=== PATIENT | male | born 1985 | race African-American/Black ===

== ENCOUNTER 2018-01-11 00:28 | Emergency (ER) | payer BC, OTHER ==
[2018-01-11] MEDS ORDERED: IPRATROPIUM-ALBUTEROL 3 ML NEB INHALATION STA ×2 (01:25→02:58)
--- NOTE | 2018-01-11 01:46 | ED ---
General Adult HPI - General Chief complaint: Upper Respiratory Infection Stated complaint: LOVE, Chest Congestion Time Seen by Provider: 01/11/18 00:55 Source: patient Mode of arrival: ambulatory - History of Present Illness Initial comments: Larry is a 32-year-old male with a past medical history of asthma for which she doesn't currently have an inhaler. He presents the emergency department today for evaluation of wheezing. He reports that on Tuesday he began having some nasal congestion and URI-like symptoms. He reports that throughout the week they've progressively worsened. He reports that today he had a low-grade fever , he took some Motrin. He states that he was in orientation for a new job today so he didn't have opportunity to rest. He reports that throughout the evening it progressively worsening wheezing which kept him from sleeping and prompted him to come to the ER for evaluation. He denies any chest pain or palpitations. He denies any cardiac history. - Related Data Home Medications Medication Instructions Recorded Confirmed Ibuprofen [Motrin] 4 tab PO DIRECTED PRN 10/15/13 01/11/18 Sertraline [Zoloft] 100 mg PO DAILY 01/11/18 01/11/18 Topiramate [Topamax] 200 mg PO BID 01/11/18 01/11/18 Previous Rx's Medication Instructions Recorded Albuterol Inhaler [Ventolin Hfa 1 - 2 puff INHALATION RT-Q6H PRN 01/11/18 Inhaler] #1 inhaler predniSONE [Deltasone] 40 mg PO DAILY 5 Days #10 tablet 01/11/18 Allergies Allergy/AdvReac Type Severity Reaction Status Date / Time No Known Allergies Allergy Verified 01/11/18 02:57 Review of Systems ROS Statement: Those systems with pertinent positive or pertinent negative responses have been documented in the HPI. ROS Other: All systems not noted in ROS Statement are negative. Past Medical History Past Medical History: Asthma Additional Past Medical History / Comment(s): knee problems History of Any Multi-Drug Resistant Organisms: None Reported Past Surgical History: No Surgical Hx Reported Past Psychological History: Anxiety Smoking Status: Current every day smoker Past Alcohol Use History: Rare Past Drug Use History: None Reported General Exam - General Exam Comments Initial Comments: GENERAL: Patient is well-developed and well-nourished. Patient is nontoxic and well- hydrated and is in no distress. HENT: Normocephalic, Atraumatic. Neck is soft and supple. No significant lymphadenopathy is noted. Oropharynx is clear. Moist mucous membranes. Neck has full range of motion without eliciting any pain. EYES: The sclera were anicteric and conjunctiva were pink and moist. Extraocular movements were intact and pupils were equal round and reactive to light. Eyelids were unremarkable. PULMONARY: Mild expiratory wheeze CARDIOVASCULAR: There is a regular rate and rhythm without any murmurs gallops or rubs. ABDOMEN: Soft and nontender with normal bowel sounds. SKIN: Skin is clear with no lesions or rashes and otherwise unremarkable. NEUROLOGIC: Patient is alert and oriented x3. Cranial nerves II through XII are grossly intact. Motor and sensory are also intact. Normal speech, volume and content. Symmetrical smile. MUSCULOSKELETAL: Normal extremities with adequate strength and full range of motion. No lower extremity swelling or edema. No calf tenderness. LYMPHATICS: No significant lymphadenopathy is noted PSYCHIATRIC: Normal psychiatric evaluation. Limitations: no limitations Course Vital Signs 01/11/18 01/11/18 01/11/18 00:41 01:25 01:33 Temperature 97.9 F 98.8 F Pulse Rate 88 102 H 98 Respiratory 24 Rate Blood Pressure 136/82 O2 Sat by Pulse 93 L 93 L Oximetry 01/11/18 01/11/18 01/11/18 01:42 02:53 03:24 Temperature 97.7 F Pulse Rate 94 92 88 Respiratory 20 Rate Blood Pressure 145/64 O2 Sat by Pulse 96 Oximetry 01/11/18 01/11/18 03:35 03:40 Temperature 97.8 F Pulse Rate 92 99 Respiratory 22 Rate Blood Pressure 146/82 O2 Sat by Pulse 93 L Oximetry Medical Decision Making - Medical Decision Making Patient was seen and evaluated history obtained from the patient who is an asthmatic, currently does not have an albuterol MDI. URI-like symptoms for 4 days now having fevers, mild cough and wheeze. On exam the patient does appear to be wheezing, he is not hypoxic, tachycardic or tachypneic. DuoNeb and chest x-ray were ordered Wheezing improved after first DuoNeb, chest x-ray with no evidence of pneumonia Repeat DuoNeb and first dose of oral steroids were ordered in the emergency department. Motrin was ordered for the patient. Results were discussed with the patient who is agreeable with the plan for discharge home with an MDI inhaler and 5 days of by mouth steroids. Patient has taken steroids before and tolerated that well. He has used his inhaler multiple times in the past and is aware of how to use it properly. Return parameters were discussed all questions pertaining care were answered best my ability patient was discharged home in stable condition Disposition Clinical Impression: Viral infection Disposition: HOME SELF-CARE Condition: Stable Instructions: Upper Respiratory Infection (ED) Prescriptions: Albuterol Inhaler [Ventolin Hfa Inhaler] 1 - 2 puff INHALATION RT-Q6H PRN #1 inhaler PRN Reason: Wheezing predniSONE [Deltasone] 40 mg PO DAILY 5 Days #10 tablet Is patient prescribed a controlled substance at d/c from ED?: No Referrals: [facility],Clinic [Primary Care Provider] - 1-2 days
--- NOTE | 2018-01-11 02:49 | XR ---
EXAMINATION TYPE: XR chest 2V DATE OF EXAM: 01/11/2018 COMPARISON: 10/15/2013 HISTORY: Asthma. Chest pain TECHNIQUE: Frontal and lateral views of the chest are obtained. FINDINGS: Heart and mediastinum are normal. Lungs are clear. Diaphragm is normal. Bony thorax appear s normal. IMPRESSION: Normal chest are no change.
[2018-01-11] MEDS ORDERED: predniSONE 20 MG TAB PO STA (02:58)
[2018-01-11 03:42] VITALS: BP 146/82; PULSE 99; RESP 22; TEMP 97.8
== END 2018-01-11 03:41 | disposition home or self-care (01) ==
LOC: EC 00:28
DX: B34.9 Viral infection, unspecified (principal); R06.00 Dyspnea, unspecified; J45.909 Unspecified asthma, uncomplicated; F41.9 Anxiety disorder, unspecified; F17.200 Nicotine dependence, unspecified, uncomplicated; Z79.899 Other long term (current) drug therapy
CPT/HCPCS: 94640 ×2; 71046; 99285; J7512